=== PATIENT | male | born 1955 | race Caucasian/White ===

== ENCOUNTER 2019-09-02 14:38 | Emergency (ER) | payer OTHER ==
[~2019-09-02] VITALS: Ht 182.9 cm; Wt 113.4 kg
--- NOTE | 2019-09-02 15:00 | NUR ---
bibrashel, c/o dysuria since yesterday. Patient a/o4, breathing even and unlabored, no sob noted, kept comfortable.
[2019-09-02 15:40] LABS: APPEARANCE,URINE Slightly Cloudy (CLEAR); BILIRUBIN,URINE Negative (NEGATIVE); BLOOD, URINE Large Ery/uL (NEGATIVE); COLOR,URINE Yellow (YELLOW); KETONES,URINE Negative (NEGATIVE); LEUKOCYTE ESTERASE ,URINE Small (NEGATIVE); NITRITE, URINE Positive (NEGATIVE); PH,URINE 5.5 (5.0-8.0); PROTEIN,URINE >=300 mg/dl (NEGATIVE); UGLUCOSE Negative (NEGATIVE); UROBILINOGEN,URINE 0.2 EU/dL (0.2)
--- NOTE | 2019-09-02 15:45 | NUR ---
24 ML URINE SHOWS ON BLADDER SCAN
[2019-09-02 15:49] LABS: RBC,URINE 20-40 /HPF (0-2)
[2019-09-02 15:50] LABS: BACTERIA,URINE Few /HPF (None Seen); SQUAMOUS EPITHELIAL CELL,UR Few /HPF (None Seen); WBC,URINE 51-80 /HPF (0-3)
[2019-09-02] MEDS ORDERED: CEFTRIAXONE 1 G in IV D5W 50 ML IV ONE (16:00)
[2019-09-02 16:06] LABS: BASOPHILS # (AUTO) 0.1 /CMM (0.0-0.2); BASOPHILS % (AUTO) 0.6 % (0.0-2.0); EOSINOPHILS % (AUTO) 0.1 % (0.0-6.0); HEMATOCRIT 49 % (39-51); HEMOGLOBIN 16.7 g/dL (13.5-17.5); LYMPHOCYTES # (AUTO) 1.7 /CMM (0.8-4.8); LYMPHOCYTES % (AUTO) 10.3 % (20.0-44.0); MEAN CORPUSCULAR HGB CONC 34 g/dl (31.0-36.0); MEAN CORPUSCULAR VOLUME 88 fL (80-96); MONOCYTES % (AUTO) 12.4 % (2.0-12.0); NEUTROPHILS # (AUTO) 12.3 /CMM (1.8-8.9); NEUTROPHILS % (AUTO) 76.6 % (43.0-81.0); PLATELET COUNT (AUTO) 227 /CMM (150-450); RED BLOOD CELL COUNT(AUTO) 5.52 MIL/uL (4.5-6.0); WHITE BLOOD COUNT (AUTO) 16.1 K/uL (4.3-11.0)
[2019-09-02] MEDS ORDERED: CEFTRIAXONE 1 G VIAL ONE (16:10)
[2019-09-02] MEDS ORDERED: LIDOCAINE /MPF 1% VIAL 5 ML VIAL ONE (16:10)
[2019-09-02 16:14] LABS: CALCIUM, SERUM 9.6 mg/dL (8.5-10.1); CREATININE 1.4 mg/dL (0.6-1.3); POTASSIUM 4.1 mmol/L (3.5-5.1)
[2019-09-02 16:20] LABS: ALBUMIN 3.5 g/dL (3.4-5.0); BILIRUBIN,DIRECT 0.3 mg/dL (0.0-0.2); BILIRUBIN,TOTAL 1.6 mg/dL (0.2-1.0)
[2019-09-02] MEDS ORDERED: CEFTRIAXONE 1 G VIAL IM ONE (16:30)
--- NOTE | 2019-09-02 17:00 | NUR ---
us tech at bedside
--- NOTE | 2019-09-02 18:00 | NUR ---
dr. adam at bedside
--- NOTE | 2019-09-02 18:15 | NUR ---
Patient discharged to home in stable condition. Written and verbal after care instructions given. Patient verbalizes understanding of instruction.
[2019-09-02 18:16] VITALS: BP 148/90
== END 2019-09-02 18:16 | disposition home or self-care (01) ==
LOC: ER 14:48
DX: N39.0 Urinary tract infection, site not specified (principal); R94.5 Abnormal results of liver function studies; K76.0 Fatty (change of) liver, not elsewhere classified
CPT/HCPCS: 36415; 76705; 80048; 80076; 81001; 83690; 85025; 87086; 96372; 99284; J0696 ×2; J3490; J7060; 81000-TC; 87186-TC